=== PATIENT | male | born 1970 | race Caucasian/White ===

== ENCOUNTER → 2016-11-22 | Outpatient (CLI) | payer OTHER ==
[~2016-11-22] MED LIST: ADVIL,NUPRIN,M200 MG PO; TYLENOL EXTRA500 MG PO
== END | disposition home or self-care (01) ==
LOC: CDC 08:09
DX: I51.7 Cardiomegaly (principal); R94.31 Abnormal electrocardiogram [ECG] [EKG]; K40.90 Unilateral inguinal hernia, without obstruction or gangrene, not specified as recurrent
CPT/HCPCS: 93000

== ENCOUNTER 2016-11-29 07:11 | Day surgery (SDC) | payer OTHER ==
[~2016-11-29] VITALS: Ht 182.9 cm; Wt 81.6 kg
[2016-11-29 09:02] VITALS: BP 120/80
[2016-11-29] MEDS ORDERED: PERCOCET 5/31 TABLET PO (10:27)
[2016-11-29 11:42] VITALS: BP 124/72
[2016-11-29 12:41] VITALS: BP 120/76
== END 2016-11-29 12:46 | disposition home or self-care (01) ==
LOC: SDC 07:11
PROC: 0YU60JZ Supplement Left Inguinal Region with Synthetic Substitute, Open Approach (ICD-10-PCS; principal; 2016-11-29)
DX: K40.90 Unilateral inguinal hernia, without obstruction or gangrene, not specified as recurrent (principal); I10 Essential (primary) hypertension; E78.5 Hyperlipidemia, unspecified; Z88.0 Allergy status to penicillin; Z82.49 Family history of ischemic heart disease and other diseases of the circulatory system; Z80.1 Family history of malignant neoplasm of trachea, bronchus and lung
CPT/HCPCS: C1781; J0690; J1885; J2250; J3010